=== PATIENT | female | born 1985 | race Hispanic/Latino ===

== ENCOUNTER 2017-06-27 09:30 | Emergency (ER) | payer OTHER ==
[2017-06-27] MEDS ORDERED: ONDANSETRON ODT 4 MG TAB ONE (10:09)
[2017-06-27 10:19] LABS: APPEARANCE,URINE Cloudy (CLEAR); BILIRUBIN,URINE Negative (NEGATIVE); COLOR,URINE Yellow (YELLOW); GLUCOSE, URINE (UA) Negative (NEGATIVE); HCG,QUAL RESULT NEGATIVE (NEGATIVE); KETONES,URINE Trace mg/dL (NEGATIVE); LEUKOCYTE ESTERASE ,URINE Moderate (NEGATIVE); NITRATE,URINE Negative (NEGATIVE); OCCULT BLOOD,URINE Negative (NEGATIVE); PROTEIN,URINE Negative (NEGATIVE); UROBILINOGEN,URINE 0.2 mg/dL (0.2-1.0)
[2017-06-27 10:34] LABS: BACTERIA,URINE Few /HPF (None Seen); SQUAMOUS EPITHELIAL CELL,UR Rare /HPF (0-2); WBC,URINE 0-1 /HPF (0-1)
== END 2017-06-27 11:03 | disposition home or self-care (01) ==
LOC: EDH 09:30
DX: N30.00 Acute cystitis without hematuria (principal); A08.4 Viral intestinal infection, unspecified; F41.9 Anxiety disorder, unspecified
CPT/HCPCS: 81001; 81025; 87804

== ENCOUNTER 2018-01-01 00:15 | Emergency (ER) | payer MEDICAID, OTHER ==
[2018-01-01] MEDS ORDERED: IBUPROFEN 600 MG TABLET ONE (00:57)
== END 2018-01-01 01:05 | disposition home or self-care (01) ==
LOC: EDH 00:15
DX: S60.221A Contusion of right hand, initial encounter (principal); F41.9 Anxiety disorder, unspecified; F32.9 Major depressive disorder, single episode, unspecified; F90.9 Attention-deficit hyperactivity disorder, unspecified type; F42.9 Obsessive-compulsive disorder, unspecified; Z91.040 Latex allergy status; Z79.899 Other long term (current) drug therapy; W22.8XXA Striking against or struck by other objects, initial encounter; Y93.89 Activity, other specified; Y92.89 Other specified places as the place of occurrence of the external cause; Y99.8 Other external cause status
CPT/HCPCS: 73130

== ENCOUNTER 2022-02-05 02:49 | Emergency (ER) | payer OTHER ==
[~2022-02-05] VITALS: Ht 152.4 cm; Wt 83.0 kg
[2022-02-05] MEDS ORDERED: PREDNISONE 20 MG TABLET ONE (02:59)
[2022-02-05] MEDS ORDERED: PREDNISONE 20 MG TABLET PO ONE (03:00)
[2022-02-05] MEDS ORDERED: PRED50TA2 PO (03:01)
[2022-02-05 03:07] VITALS: BP 140/90
== END 2022-02-05 03:18 | disposition home or self-care (01) ==
LOC: EDH 02:49
DX: T63.441A Toxic effect of venom of bees, accidental (unintentional), initial encounter (principal); F31.9 Bipolar disorder, unspecified; F41.9 Anxiety disorder, unspecified; Y92.89 Other specified places as the place of occurrence of the external cause

== ENCOUNTER 2022-04-03 07:13 | Emergency (ER) | payer OTHER ==
[~2022-04-03] VITALS: Ht 152.4 cm; Wt 83.5 kg
[~2022-04-03 07:13] MED LIST: PRED50TA2 PO
[2022-04-03 07:15] VITALS: BP 115/74
== END 2022-04-03 10:48 | disposition left against medical advice (07) ==
LOC: EDH 07:13
DX: R51.9 Headache, unspecified (principal); R11.2 Nausea with vomiting, unspecified; Z20.822 Contact with and (suspected) exposure to COVID-19; Z53.21 Procedure and treatment not carried out due to patient leaving prior to being seen by health care provider
CPT/HCPCS: 87635; 87804 ×2; 81025; C9803

== ENCOUNTER 2022-04-05 15:38 | Emergency (ER) | payer OTHER ==
[~2022-04-05] VITALS: Ht 152.4 cm; Wt 85.7 kg
[2022-04-05 16:29] VITALS: BP 106/69
== END 2022-04-05 18:39 | disposition left against medical advice (07) ==
LOC: EDH 15:38
DX: R05.9 Cough, unspecified (principal); R09.81 Nasal congestion; Z53.21 Procedure and treatment not carried out due to patient leaving prior to being seen by health care provider; Z20.822 Contact with and (suspected) exposure to COVID-19
CPT/HCPCS: 87635; 87804 ×2; C9803

== ENCOUNTER 2023-01-04 12:00 | Emergency (ER) | payer BC, OTHER ==
[~2023-01-04] VITALS: Ht 152.4 cm; Wt 83.5 kg
[~2023-01-04 12:00] MED LIST changes: +IBUP-1493 PO; +OMEP40CA21 PO; +ONDA-104 PO
[2023-01-04 12:56] LABS: BASOPHILS # (AUTO) 0.02 K/uL (0.00-0.20); BASOPHILS % (AUTO) 0.2 % (0.0-5.0); EOSINOPHILS % (AUTO) 1.8 % (0.0-8.0); IMMATURE GRANULOCYTE ABSOLUTE 0.04 K/uL (0-1); LYMPHOCYTES # (AUTO) 1.9 K/uL (1.0-4.8); LYMPHOCYTES % (AUTO) 17.2 % (21.0-51.0); MEAN CORPUSCULAR HEMOGLOBIN 29.8 pg (27.0-33.0); MEAN CORPUSCULAR HGB CONC 32.6 g/dL (32.0-36.0); MEAN CORPUSCULAR VOLUME 91.2 fL (79-99); MONOCYTES # (AUTO) 0.4 K/uL (0.1-1.0); MONOCYTES % (AUTO) 3.8 % (3.0-13.0); NEUTROPHILS # (AUTO) 8.6 K/uL (1.8-7.7); NEUTROPHILS % (AUTO) 76.6 % (40.0-77.0); PLATELET COUNT (AUTO) 311 K/uL (130-400); RED BLOOD CELL COUNT(AUTO) 3.73 MIL/uL (4.00-5.50); RED CELL DISTRIBUTION WIDTH 13.8 % (11.0-15.5); WHITE BLOOD COUNT (AUTO) 11.2 K/uL (4.8-10.8)
[2023-01-04 13:05] LABS: CREATININE 0.7 mg/dL (0.5-1.5); POTASSIUM 3.6 mmol/L (3.5-5.1)
[2023-01-04 13:09] LABS: ALBUMIN 3.3 g/dL (3.5-5.0); BILIRUBIN,TOTAL 0.4 mg/dL (0.2-1.0)
[2023-01-04 15:47] LABS: APPEARANCE,URINE CLEAR (CLEAR); BILIRUBIN,URINE NEGATIVE (NEGATIVE); COLOR,URINE COLORLESS (YELLOW); GLUCOSE, URINE (UA) NEGATIVE (NEGATIVE); KETONES,URINE NEGATIVE (NEGATIVE); LEUKOCYTE ESTERASE ,URINE NEGATIVE Leu/uL (NEGATIVE); NITRATE,URINE NEGATIVE (NEGATIVE); OCCULT BLOOD,URINE NEGATIVE (NEGATIVE); PROTEIN,URINE NEGATIVE (NEGATIVE); UROBILINOGEN,URINE 0.2 mg/dL (0.2-1.0)
[2023-01-04 15:48] LABS: ADD UA MICROSCOPIC YES
[2023-01-04 15:50] LABS: HCG,QUALITATIVE URINE NEGATIVE (NEGATIVE); MUCUS,URINE RARE LPF (None Seen); SQUAMOUS EPITHELIAL CELL,UR RARE /HPF (0-2); WBC,URINE 0-1 /HPF (0-1)
[2023-01-04] MEDS ORDERED: KETOROLAC 30MG VIAL (30MG/ML) IM ONE (16:30)
[2023-01-04] MEDS ORDERED: KETOROLAC 30MG VIAL (30MG/ML) IVP ONE (16:30)
[2023-01-04] MEDS ORDERED: IOHEXOL 350 MG/ML 100ML INFUS..BTL IV ONE (18:11)
[2023-01-04 19:13] VITALS: BP 121/81; PULSE 88; RESP 16; O2SAT 96
== END 2023-01-04 19:24 | disposition home or self-care (01) ==
LOC: EDH 12:00
DX: K80.20 Calculus of gallbladder without cholecystitis without obstruction (principal); K80.50 Calculus of bile duct without cholangitis or cholecystitis without obstruction; F41.9 Anxiety disorder, unspecified; F31.9 Bipolar disorder, unspecified; Z79.1 Long term (current) use of non-steroidal anti-inflammatories (NSAID); Z79.52 Long term (current) use of systemic steroids; Z79.899 Other long term (current) drug therapy
CPT/HCPCS: 99284; 74176; 80053; 83690; 85025; 81001; 81025; 36415; 96372; J1885; Q9967